=== PATIENT | male | born 1965 | race Caucasian/White ===

== ENCOUNTER → 2018-10-10 | Outpatient (CLI) | payer SELFPAY ==
[~2018-10-10] MED LIST: NKHM; VICODIN ES 7501 TAB PO; VOLTAREN50 M1 PO
== END | disposition home or self-care (01) ==
LOC: RAD 11:12
DX: M17.12 Unilateral primary osteoarthritis, left knee (principal); M25.462 Effusion, left knee

== ENCOUNTER 2023-04-10 19:58 | Emergency (ER) | payer SELFPAY ==
[~2023-04-10] VITALS: Ht 182.8 cm; Wt 108.9 kg
[2023-04-10 20:50] LABS: BASO % 0.1 % (0.0-1.0); EOS # 0.1 10*3/uL (0.0-0.4); EOS % 1.1 % (1.0-4.0); HEMATOCRIT 45.5 % (42.0-52.0); LYMPH # 1.7 10*3/uL (1.3-4.4); LYMPH % 21.1 % (27.0-41.0); MEAN CELL VOLUME 84.3 fl (80.0-94.0); MEAN CORPUSCULAR HGB 29.4 pg (27.0-31.0); MEAN CORPUSCULAR HGB CONC 34.9 g/dl (33.0-37.0); MEAN PLATELET VOLUME 9.6 fl (9.6-12.3); MONO # 0.3 10*3/uL (0.1-1.0); MONO % 4.2 % (3.0-9.0); NEUT # 5.8 10*3/uL (2.3-7.9); NEUT % 73.2 % (47.0-73.0); PLATELET COUNT AUTOMATED 235 10*3/uL (130-400); RED CELL DISTRI WIDTH 12.4 % (0-14.5)
[2023-04-10 21:01] LABS: ACT PARTIAL THROMBO TIME 25.2 SECONDS (20.0-32.1)
[2023-04-10 21:10] LABS: BILIRUBIN Negative (Negative); BLOOD 1+ (Negative); CLARITY Clear (Clear); COLOR Yellow (Yellow); GLUCOSE Negative (Negative); KETONE Negative (Negative); LEUKO ESTERASE Negative (Negative); NITRITE Negative (Negative); PH 7.5 (4.5-8.0)
[2023-04-10 21:14] LABS: ALKALINE PHOSPHATASE 83 U/L (46-116); BUN 15 mg/dl (9-23); LIPASE 35 U/L (12-53); SGPT/ALT 29 U/L (5-49); TOTAL PROTEIN 7.6 gm/dL (6.0-8.0)
[2023-04-10 21:22] LABS: CHLORIDE 101 mmol/L (98-107); POTASSIUM 3.3 mmol/L (3.4-5.1)
[2023-04-10 21:29] LABS: BACTERIA TRACE; RBC 16-20 rbc/hpf (0-2); WBC 0-2 wbc/hpf (0-5)
[2023-04-10] MEDS ORDERED: CYCLOBENZAPRINE10 MG PO (23:04)
== END 2023-04-10 23:23 | disposition home or self-care (01) ==
LOC: ED 19:58
PROVIDERS: Internal Medicine
DX: R10.9 Unspecified abdominal pain (principal); M54.50 Low back pain, unspecified; R11.2 Nausea with vomiting, unspecified